=== PATIENT | male | born 1985 | race Caucasian/White ===

== ENCOUNTER 2019-09-09 09:32 | Emergency (ER) | payer BC, OTHER ==
[~2019-09-09] VITALS: Ht 165.1 cm; Wt 86.2 kg
[~2019-09-09 09:32] MED LIST: BUPR100T4 PO; NEBI10TA2 PO
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
--- NOTE | 2019-09-09 09:49 | NUR ---
SEEN AND EXAMINED BY .
--- NOTE | 2019-09-09 09:55 | NUR ---
ER PHLEB AT BEDSIDE FOR BLOOD DRAW.
[2019-09-09 10:05] LABS: BASOPHILS % (AUTO) 0.6 % (0.0-2.0); EOSINOPHILS % (AUTO) 1.1 % (0.0-6.0); HEMATOCRIT 49 % (39-51); LYMPHOCYTES # (AUTO) 2.1 /CMM (0.8-4.8); LYMPHOCYTES % (AUTO) 30.8 % (20.0-44.0); MEAN CORPUSCULAR HGB CONC 35 g/dl (31.0-36.0); MEAN CORPUSCULAR VOLUME 95 fL (80-96); MONOCYTES # (AUTO) 0.5 /CMM (0.1-1.30); MONOCYTES % (AUTO) 7.6 % (2.0-12.0); NEUTROPHILS # (AUTO) 4.1 /CMM (1.8-8.9); NEUTROPHILS % (AUTO) 59.9 % (43.0-81.0); PLATELET COUNT (AUTO) 207 /CMM (150-450); RED BLOOD CELL COUNT(AUTO) 5.13 MIL/uL (4.5-6.0); WHITE BLOOD COUNT (AUTO) 6.8 K/uL (4.3-11.0)
[2019-09-09 10:09] LABS: CALCIUM, SERUM 8.7 mg/dL (8.5-10.1); CARBON DIOXIDE 26 mmol/L (21-32); CHLORIDE 105 mmol/L (98-107); CREATININE 0.8 mg/dL (0.6-1.3); GLUCOSE 111 mg/dL (74-106); POTASSIUM 4.2 mmol/L (3.5-5.1); SODIUM SERUM 136 mmol/L (136-145); UREA NITROGEN, BLOOD 18 mg/dL (7-18)
--- NOTE | 2019-09-09 10:10 | NUR ---
URINAL GIVEN BUT UNABLE TO PROVIED URINE SPECIMEN THIS TIME.
[2019-09-09 10:16] LABS: ACETAMINOPHEN 0 ug/ml (10-30); ALANINE AMINOTRANSFERASE 23 U/L (12-78); ALCOHOL, BLOOD < 3 mg/dL (0-0); ALKALINE PHOSPHATASE 81 U/L (46-116); ASPARTATE AMINOTRANSFERASE 20 U/L (15-37); BILIRUBIN,DIRECT 0.1 mg/dL (0.0-0.2); BILIRUBIN,TOTAL 0.5 mg/dL (0.2-1.0); SALICYLATE < 0.2 mg/dL (2.8-20.0); TOTAL PROTEIN, SERUM 7.6 g/dL (6.4-8.2)
--- NOTE | 2019-09-09 10:18 | NUR ---
URINE SPECIMEN COLLECTED AND SENT TO LAB.
[2019-09-09 10:32] LABS: APPEARANCE,URINE Clear (CLEAR); BILIRUBIN,URINE Negative (NEGATIVE); BLOOD, URINE Trace-lysed Ery/uL (NEGATIVE); COLOR,URINE Yellow (YELLOW); KETONES,URINE Negative (NEGATIVE); LEUKOCYTE ESTERASE ,URINE Negative (NEGATIVE); NITRITE, URINE Negative (NEGATIVE); PROTEIN,URINE Negative (NEGATIVE); UGLUCOSE Negative (NEGATIVE); UROBILINOGEN,URINE 0.2 EU/dL (0.2)
[2019-09-09 10:37] LABS: BACTERIA,URINE Rare /HPF (None Seen); RBC,URINE 0-2 /HPF (0-2); SQUAMOUS EPITHELIAL CELL,UR Rare /HPF (None Seen); WBC,URINE 0-2 /HPF (0-3)
--- NOTE | 2019-09-09 12:25 | NUR ---
CALLED [facility] FOR CONSULT, NO ANSWER.
--- NOTE | 2019-09-09 12:43 | NUR ---
TRACE ETA 1HR
--- NOTE | 2019-09-09 14:30 | NUR ---
[facility] JOY CRISISTEAM AT BEDSIDE FOR EVAL.
--- NOTE | 2019-09-09 16:32 | NUR ---
SPOKED TO BENITA COBIAN OF [facility] FOR PT TRANSFER.
[2019-09-09] MEDS ORDERED: ACETAMINOPHEN 325 MG TABLET ONE (16:46)
--- NOTE | 2019-09-09 16:46 | NUR ---
TRANSFER INFO: PT ACCEPTED BY DR HERNANDEZ AT [facility], RN FOR REPORT [phone], TRANSPORT ETA TO FOLLOW
--- NOTE | 2019-09-09 16:48 | NUR ---
TYLENOL 650MG PO GIVEN ORDERED BY .
--- NOTE | 2019-09-09 17:11 | NUR ---
REPORT GIVEN TO BENITA MILES OF [facility] FOR FRANCI.
--- NOTE | 2019-09-09 17:29 | NUR ---
AMBULANCE ETA 183
--- NOTE | 2019-09-09 18:24 | NUR ---
PT STATED HE NEED CPAP WHEN SLEEPING.
--- NOTE | 2019-09-09 18:25 | NUR ---
CALLED [facility] FOR UPDATE, LEFT VOICEMAIL
--- NOTE | 2019-09-09 18:32 | NUR ---
SPOKED TO [facility], THEY CAN NOT ACCEPT PATIENT, CPAP OR SLEEP APNEA IS INCLUDED IN THERE EXCLUSION CRITERIA, CHARGE NURSE AWARE.
--- NOTE | 2019-09-09 19:03 | NUR ---
SPOKE TO MARS AT [facility] INTAKE REGARDING CLINICALS, AWAITING CALL BACK
--- NOTE | 2019-09-09 19:14 | NUR ---
REPORT GIVEN TO BENITA VELIZ FOR FRANCI.
--- NOTE | 2019-09-09 19:15 | NUR ---
PT RECEIVED FROM [facility]IS[facility]E, RN FOR FRANCI. PT IN BED AAOX4. NO RESP DISTRESS NOTED. DINNER ALREADY PROVIDED. AWAITING PLACEMENT INFORMATION. 1:1 SITTER AT BEDSIDE
[2019-09-09] MEDS ORDERED: IBUPROFEN 600 MG TABLET PO ONE ×2 (19:22→19:30)
--- NOTE | 2019-09-09 19:36 | NUR ---
TRANSFER INFO: PT GOING TO [facility] ACCEPTED BY Robert GOODWIN [address] [facility], ROOM 221-A, RN FOR REPORT AT 2010 HOURS PLEASE CALL [phone]
--- NOTE | 2019-09-09 19:43 | NUR ---
JAYLON GASPAR TO [facility] [facility] ETA 2004 TRIP#[id number]
--- NOTE | 2019-09-09 19:58 | NUR ---
REPORT GIVEN TO CHRIS AT [facility] [facility] FOR FRANCI. ETA 25 MIN
--- NOTE | 2019-09-09 20:25 | NUR ---
RICHA AT BEDSIDE FOR PT TRANSPORT TO [facility]. PT IS IN STABLE CONDITION FOR TRANSPORT. NAD NOTED. ALL BELONGINS GIVEN TO [facility] STAFF WELL THE CPAP DEVICE. REPORT GIVEN.
[2019-09-09] MEDS ORDERED: CLONIDINE HCL 0.1 MG TABLET ONE (20:36)
[2019-09-09 20:45] VITALS: BP 168/83
[2019-09-09] MEDS ORDERED: CLONIDINE HCL 0.1 MG TABLET PO ONE (21:00)
[2019-09-10] MEDS ORDERED: ACETAMINOPHEN 325 MG TABLET PO ONE (14:30)
== END 2019-09-09 20:28 ==
LOC: ER 09:34
DX: R45.851 Suicidal ideations (principal); F60.3 Borderline personality disorder; F32.9 Major depressive disorder, single episode, unspecified
CPT/HCPCS: 36415; 80048; 80076; 80305; 80307; 80329; 81001; 85025; 93005; 99285; C1751; G0480; 81000-TC

== ENCOUNTER 2020-08-21 02:59 | Emergency (ER) | payer BC ==
[~2020-08-21] VITALS: Ht 162.6 cm; Wt 97.5 kg
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
--- NOTE | 2020-08-21 03:09 | NUR ---
ER MD AT BEDSIDE TO EVAL PT WITH ORDERS RECEIVED.
--- NOTE | 2020-08-21 03:11 | NUR ---
STUDENT ACTIVITIES DIRECTOR AT BEDSIDE FOR BLOOD DRAW.
[2020-08-21 03:31] LABS: BASOPHILS # (AUTO) 0.1 /CMM (0.0-0.2); BASOPHILS % (AUTO) 0.7 % (0.0-2.0); EOSINOPHILS % (AUTO) 1.5 % (0.0-6.0); HEMATOCRIT 50 % (39-51); HEMOGLOBIN 17.1 g/dL (13.5-17.5); LYMPHOCYTES # (AUTO) 3.2 /CMM (0.8-4.8); LYMPHOCYTES % (AUTO) 32.4 % (20.0-44.0); MEAN CORPUSCULAR HGB CONC 34 g/dl (31.0-36.0); MEAN CORPUSCULAR VOLUME 96 fL (80-96); MONOCYTES # (AUTO) 0.7 /CMM (0.1-1.30); MONOCYTES % (AUTO) 7.6 % (2.0-12.0); NEUTROPHILS # (AUTO) 5.7 /CMM (1.8-8.9); NEUTROPHILS % (AUTO) 57.8 % (43.0-81.0); PLATELET COUNT (AUTO) 223 /CMM (150-450); RED BLOOD CELL COUNT(AUTO) 5.21 MIL/uL (4.5-6.0); WHITE BLOOD COUNT (AUTO) 9.8 K/uL (4.3-11.0)
[2020-08-21 03:44] LABS: CALCIUM, SERUM 7.8 mg/dL (8.5-10.1); CREATININE 0.9 mg/dL (0.6-1.3); POTASSIUM 3.5 mmol/L (3.5-5.1)
[2020-08-21 03:52] LABS: ALBUMIN 3.7 g/dL (3.4-5.0); BILIRUBIN,DIRECT 0.1 mg/dL (0.0-0.2); BILIRUBIN,TOTAL 0.2 mg/dL (0.2-1.0); TOTAL PROTEIN, SERUM 7.1 g/dL (6.4-8.2)
[2020-08-21 03:59] LABS: SALICYLATE 0.9 mg/dL (2.8-20.0)
[2020-08-21 04:54] LABS: APPEARANCE,URINE CLEAR (CLEAR); BILIRUBIN,URINE NEGATIVE (NEGATIVE); COLOR,URINE YELLOW (YELLOW); KETONES,URINE NEGATIVE (NEGATIVE); LEUKOCYTE ESTERASE ,URINE NEGATIVE (NEGATIVE); NITRITE, URINE NEGATIVE (NEGATIVE); PH,URINE 5.5 (5.0-8.0); PROTEIN,URINE NEGATIVE (NEGATIVE); UGLUCOSE NEGATIVE (NEGATIVE); UROBILINOGEN,URINE 0.2 EU/dL (0.2)
[2020-08-21] MEDS ORDERED: ONDANSETRON 4 MG TAB.RAPDIS ONE (04:58)
[2020-08-21] MEDS ORDERED: ONDANSETRON 4 MG TAB.RAPDIS SL ONE (05:30)
[2020-08-21 06:00] LABS: BLOOD, URINE NEGATIVE Ery/uL (NEGATIVE)
--- NOTE | 2020-08-21 06:11 | NUR ---
DINA MILLERW AT BEDSIDE TO EVAL PT.
--- NOTE | 2020-08-21 07:22 | NUR ---
PATIENT DENIES SI AND HI. PATIENT STATES HE WILL HAVE HIS PARTNER WILL BE PICKING HIM UP.
--- NOTE | 2020-08-21 07:23 | NUR ---
Patient discharged to home in stable condition. Written and verbal after care instructions given. Patient verbalizes understanding of instruction.
[2020-08-21 07:28] VITALS: BP 134/85
== END 2020-08-21 07:30 | disposition home or self-care (01) ==
LOC: ER 03:00
DX: R45.851 Suicidal ideations (principal); F32.9 Major depressive disorder, single episode, unspecified; F10.129 Alcohol abuse with intoxication, unspecified; F60.3 Borderline personality disorder; Y90.6 Blood alcohol level of 120-199 mg/100 ml; Z79.899 Other long term (current) drug therapy
CPT/HCPCS: 36415; 80048; 80076; 80305; 80307; 80329; 81001; 85025; 99285; G0480; Q0162; 81000-TC

== ENCOUNTER 2021-11-28 01:49 | Emergency (ER) | payer BC ==
[~2021-11-28] VITALS: Ht 165.1 cm; Wt 106.6 kg
[2021-11-28 02:44] LABS: BASOPHILS % (AUTO) 0.3 % (0.0-2.0); EOSINOPHILS % (AUTO) 0.7 % (0.0-6.0); HEMATOCRIT 50 % (39-51); HEMOGLOBIN 17.3 g/dL (13.5-17.5); LYMPHOCYTES % (AUTO) 24.1 % (20.0-44.0); MEAN CORPUSCULAR HGB CONC 35 g/dl (31.0-36.0); MEAN CORPUSCULAR VOLUME 95 fL (80-96); MONOCYTES # (AUTO) 1.1 K/uL (0.1-1.30); MONOCYTES % (AUTO) 12.7 % (2.0-12.0); NEUTROPHILS # (AUTO) 5.2 K/uL (1.8-8.9); NEUTROPHILS % (AUTO) 62.2 % (43.0-81.0); PLATELET COUNT (AUTO) 247 K/uL (150-450); RED BLOOD CELL COUNT(AUTO) 5.31 MIL/uL (4.5-6.0); WHITE BLOOD COUNT (AUTO) 8.3 K/uL (4.3-11.0)
[2021-11-28 02:56] LABS: ALBUMIN 3.9 g/dL (3.4-5.0); BILIRUBIN,DIRECT 0.1 mg/dL (0.0-0.2); BILIRUBIN,TOTAL 0.4 mg/dL (0.2-1.0); CALCIUM, SERUM 8.4 mg/dL (8.5-10.1); POTASSIUM 3.7 mmol/L (3.5-5.1); TOTAL PROTEIN, SERUM 7.7 g/dL (6.4-8.2)
[2021-11-28 03:04] LABS: BILIRUBIN,URINE NEGATIVE (NEGATIVE); COLOR,URINE YELLOW (YELLOW); LEUKOCYTE ESTERASE ,URINE NEGATIVE (NEGATIVE); NITRITE, URINE NEGATIVE (NEGATIVE); PROTEIN,URINE NEGATIVE (NEGATIVE); UGLUCOSE NEGATIVE (NEGATIVE); UROBILINOGEN,URINE 0.2 EU/dL (0.2)
[2021-11-28] MEDS ORDERED: HALOPERIDOL LACTATE INJ 5 MG/ML VIAL IM ONE ×2 (03:30→05:00)
[2021-11-28] MEDS ORDERED: HALOPERIDOL LACTATE INJ 5 MG/ML VIAL ONE (03:39)
--- NOTE | 2021-11-28 04:02 | NUR ---
FIDENCIO - SPOUSE [phone]
[2021-11-28 08:18] LABS: BACTERIA,URINE Rare /HPF (None Seen); RBC,URINE 0-2 /HPF (0-2); SQUAMOUS EPITHELIAL CELL,UR Rare /HPF (None Seen); WBC,URINE 0-2 /HPF (0-3)
--- NOTE | 2021-11-28 08:51 | NUR ---
Patient discharged to home in stable condition. Written and verbal after care instructions given. Patient verbalizes understanding of instruction. Patient denies suicidal ideation. Ambulates out of ER in stable gait.
[2021-11-28 08:54] VITALS: BP 128/75
== END 2021-11-28 08:55 | disposition home or self-care (01) ==
LOC: ER 01:50
DX: F10.129 Alcohol abuse with intoxication, unspecified (principal); Y90.7 Blood alcohol level of 200-239 mg/100 ml; I10 Essential (primary) hypertension; F60.3 Borderline personality disorder; I34.1 Nonrheumatic mitral (valve) prolapse; E66.9 Obesity, unspecified; Z68.39 Body mass index [BMI] 39.0-39.9, adult; Z91.040 Latex allergy status; Z79.899 Other long term (current) drug therapy; F32.A Depression, unspecified; Z20.822 Contact with and (suspected) exposure to COVID-19
CPT/HCPCS: 36415; 80048; 80076; 80143; 80307; 80320 ×2; 81001; 85025; 87426; 96372; 99284; C9803; J1630; G0480

== ENCOUNTER 2022-10-11 23:18 | Emergency (ER) | payer BC ==
[~2022-10-11] VITALS: Ht 165.1 cm; Wt 97.5 kg
[2022-10-11 23:23] VITALS: BP 150/81
[2022-10-11] MEDS ORDERED: LORAZEPAM 1 MG TABLET ONE (23:50)
[2022-10-12] MEDS ORDERED: LORAZEPAM 1 MG TABLET PO ONE
== END 2022-10-12 01:34 | disposition home or self-care (01) ==
LOC: ER 23:29
DX: F41.0 Panic disorder [episodic paroxysmal anxiety] (principal); F12.90 Cannabis use, unspecified, uncomplicated; I10 Essential (primary) hypertension; F32.A Depression, unspecified; Z91.040 Latex allergy status; Z79.899 Other long term (current) drug therapy

== ENCOUNTER 2023-09-01 00:04 | Emergency (ER) | payer BC, OTHER ==
[~2023-09-01] VITALS: Ht 167.6 cm; Wt 105.7 kg
[2023-09-01 01:29] LABS: BASOPHILS % (AUTO) 0.4 % (0.0-2.0); EOSINOPHILS # (AUTO) 0.1 K/uL (0.0-0.7); EOSINOPHILS % (AUTO) 0.8 % (0.0-6.0); HEMATOCRIT 50 % (39-51); HEMOGLOBIN 16.6 g/dL (13.5-17.5); LYMPHOCYTES # (AUTO) 2.2 K/uL (0.8-4.8); LYMPHOCYTES % (AUTO) 28.2 % (20.0-44.0); MEAN CORPUSCULAR HEMOGLOBIN 32 PG (26.0-33.0); MEAN CORPUSCULAR HGB CONC 34 g/dl (31.0-36.0); MEAN CORPUSCULAR VOLUME 95 fL (80-96); MONOCYTES # (AUTO) 0.6 K/uL (0.1-1.30); MONOCYTES % (AUTO) 7.7 % (2.0-12.0); NEUTROPHILS # (AUTO) 4.9 K/uL (1.8-8.9); NEUTROPHILS % (AUTO) 62.9 % (43.0-81.0); PLATELET COUNT (AUTO) 246 K/uL (150-450); RED CELL DISTRIBUTION WIDTH 13.9 % (11.5-15.0); WHITE BLOOD COUNT (AUTO) 7.8 K/uL (4.3-11.0)
[2023-09-01 01:53] LABS: ALBUMIN 3.9 g/dL (3.4-5.0); BILIRUBIN,DIRECT 0.1 mg/dL (0.0-0.2); BILIRUBIN,TOTAL 0.2 mg/dL (0.2-1.0); CALCIUM, SERUM 8.9 mg/dL (8.5-10.1); POTASSIUM 3.7 mmol/L (3.5-5.1); SALICYLATE 0.9 mg/dL (2.8-20.0); TOTAL PROTEIN, SERUM 7.6 g/dL (6.4-8.2)
[2023-09-01 02:12] VITALS: BP 141/86; TEMP 97.9; O2SAT 99
[2023-09-01 02:32] LABS: APPEARANCE,URINE CLEAR (CLEAR); BILIRUBIN,URINE NEGATIVE (NEGATIVE); BLOOD, URINE TRACE-INTA Ery/uL (NEGATIVE); COLOR,URINE YELLOW (YELLOW); KETONES,URINE TRACE mg/dL (NEGATIVE); LEUKOCYTE ESTERASE ,URINE NEGATIVE (NEGATIVE); NITRITE, URINE NEGATIVE (NEGATIVE); PH,URINE 5.5 (5.0-8.0); PROTEIN,URINE NEGATIVE (NEGATIVE); UGLUCOSE NEGATIVE (NEGATIVE); UROBILINOGEN,URINE 0.2 EU/dL (0.2)
[2023-09-01 02:45] LABS: AMPHETAMINE, URINE NEGATIVE (NEGATIVE); BARBITURATE, URINE NEGATIVE (NEGATIVE); BENZODIAZEPINE, URINE NEGATIVE (NEGATIVE); CANNABINOID, URINE NEGATIVE (NEGATIVE); COCCAINE, URINE NEGATIVE (NEGATIVE); OPIATE, URINE NEGATIVE (NEGATIVE); PHENCYCLIDINE SCREEN,URINE NEGATIVE (NEGATIVE)
== END 2023-09-01 02:12 | disposition home or self-care (01) ==
LOC: ER 00:05
DX: F60.3 Borderline personality disorder (principal); F10.129 Alcohol abuse with intoxication, unspecified; I10 Essential (primary) hypertension; F32.A Depression, unspecified; E66.9 Obesity, unspecified; Z79.899 Other long term (current) drug therapy; Y90.6 Blood alcohol level of 120-199 mg/100 ml
CPT/HCPCS: 36415; 80048-TC; 80076-TC; 85025-TC; G0480